=== PATIENT | female | born 1995 | race Caucasian/White ===

== ENCOUNTER 2016-10-24 11:32 | Emergency (ER) | payer OTHER ==
[~2016-10-24] VITALS: Ht 160 cm; Wt 100.0 kg
[2016-10-24 11:40] VITALS: Ht 160 cm; Wt 100.0 kg
[2016-10-24] MEDS ORDERED: AMO500 PO (11:56)
[2016-10-24] MEDS ORDERED: IBUP-1542 PO (11:56)
[2016-10-24] MEDS ORDERED: ALBU18HF INHALATION (11:56)
--- NOTE | 2016-10-24 12:08 | ERD ---
ER Documentation Chief Complaint Date/Time DATE: 10/24/16 TIME: 12:05 Chief Complaint sore throat with l ear pain for past 2 days HPI 21-year-old female patient with a past medical history of asthma presents to the ED complaining of sore throat that started 2 days ago. States that she also noticed a white dot on her left tonsil. States that she felt like she had slight wheezing but took her inhaler and feels better. Denies any dysphagia or odynophagia. Reports slight tactile fevers at home. Denies any chills, abdominal pain, nausea, vomiting, diarrhea, rashes. Denies being . ROS All systems reviewed and are negative except as per history of present illness. Medications Home Meds Active Scripts Albuterol Sulfate* (Ventolin HFA*) 18 Gm Hfa.aer.ad, 2 PUFF INHALATION Q4H, #1 INHALER Prov:ROMY WILLAMS-C 10/24/16 Amoxicillin* (Amoxicillin*) 500 Mg Cap, 500 MG PO BID for 10 Days, CAP Prov:ROMY WILLAMS-C 10/24/16 Ibuprofen* (Motrin*) 600 Mg Tab, 600 MG PO Q6, #30 TAB Prov:ROMY WILLAMS-C 10/24/16 Allergies Allergies: Coded Allergies: No Known Drug Allergy (Verified Allergy, Mild, 01/04/14) PMhx/Soc History of Surgery: No Hx Neurological Disorder: No Hx Respiratory Disorders: Yes (asthma) Hx Cardiac Disorders: No Hx Miscellaneous Medical Probl: No Hx Alcohol Use: No Hx Substance Use: No Hx Tobacco Use: No Physical Exam Vitals Vital Signs Date Time Temp Pulse Resp B/P Pulse Ox O2 Delivery O2 Flow Rate FiO2 10/24/16 11:40 98.5 110 18 124/89 99 Physical Exam Const: [id number], well-nourished. In no acute distress. Head: Atraumatic, normocephalic Eyes: Normal Conjunctiva without injection. No purulent discharge. PERRL. EOMI ENT: Normal external ear. Ear canal without erythema. Tympanic membrane pearly carrion without effusion or bulging. Nasal canal clear with normal turbinates. Moist oropharynx with left tonsillar exudates. Non-erythematous pharynx. Uvula midline. No drooling. No trismus. Neck: Full range of motion. No meningismus. No cervical lymphadenopathy. Resp: Clear to auscultation bilaterally. No wheezing, rhonchi, rales, or crackles. No accessory muscle use. No retractions. Cardio: Regular rate and rhythm. No murmurs, rubs or gallops. Abd: Soft, non tender, non distended. Normal bowel sounds. No palpable masses. No rebound tenderness. No guarding. Skin: No petechiae or rashes Back: No midline tenderness. No CVA tenderness. Ext: No cyanosis, or edema. Neur: Awake and alert. Psych: Normal Mood and Affect Procedures/MDM 21-year-old female patient with no significant past medical history presents the ED complaining of sore throat that started 2 days ago and noticed a white dot on her left tonsil. Patient is afebrile and nontoxic-appearing. Patient has normal vital signs. Patient's physical exam is consistent with presumed strep pharyngitis. Based on Centor's Criteria, patient has reported fever at home, left tonsillar exudates, no cough. Patient is appropriate for outpatient antibiotics. Patient's physical exam include lungs which were clear to auscultation and a normal pulse oximetry. Bilateral ears pearly cheek. No tenderness to palpation of tragus or mastoid. Low suspicion for mastoiditis, otitis externa, otitis media. Patient is speaking in full sentences. There is a low suspicion for pneumonia, epiglottitis, croup, Freddie's angina, sinusitis, peritonsillar abscess, hands foot mouth disease, scarlet fever, Kawasaki disease , retropharyngeal abscess, meningitis, sepsis, acute abdomen or other emergent conditions. Discharge medications: Ventolin, Amoxicillin, Ibuprofen Follow up with primary care physician in 1-2 days. Instructed patient to return to the ED sooner for any worsening symptoms. Patient's questions were answered. Patient understood and agreed with discharge plan. Patient discharged stable. Departure Diagnosis: Primary Impression: Sore throat Condition: Stable Patient Instructions: Strep Throat Referrals: COMM[facility]ITY CLIN[facility] YOU HAVE RECEIVED A MEDICAL SCREENING EXAM AND THE RESULTS INDICATE THAT YOU DO NOT HAVE A CONDITION THAT REQUIRES URGENT TREATMENT IN THE EMERGENCY DEPARTMENT. FURTHER EVALUATION AND TREATMENT OF YOUR CONDITION CAN WAIT UNTIL YOU ARE SEEN IN YOUR DOCTORS OFFICE WITHIN THE NEXT 1-2 DAYS. IT IS YOUR RESPONSIBILITY TO MAKE AN APPOINTMENT FOR FOLOW-UP CARE. IF YOU HAVE A PRIMARY DOCTOR --you should call your primary doctor and schedule an appointment IF YOU DO NOT HAVE A PRIMARY DOCTOR YOU CAN CALL OUR PHYSICIAN REFERRAL HOTLINE AT IF YOU CAN NOT AFFORD TO SEE A PHYSICIAN YOU CAN CHOSE FROM THE FOLLOWING [facility] [address] [facility] [address] [facility] [address] [facility] [address] [facility] [address] [facility]. [facility] [address] [facility]. [facility] YOU HAVE RECEIVED A MEDICAL SCREENING EXAM AND THE RESULTS INDICATE THAT YOU DO NOT HAVE A CONDITION THAT REQUIRES URGENT TREATMENT IN THE EMERGENCY DEPARTMENT. FURTHER EVALUATION AND TREATMENT OF YOUR CONDITION CAN WAIT UNTIL YOU ARE SEEN IN YOUR DOCTORS OFFICE WITHIN THE NEXT 1-2 DAYS. IT IS YOUR RESPONSIBILITY TO MAKE AN APPOINTMENT FOR FOLOW-UP CARE. IF YOU HAVE A PRIMARY DOCTOR --you should call your primary doctor and schedule and appointment IF YOU DO NOT HAVE A PRIMARY DOCTOR YOU CAN CALL OUR PHYSICIAN REFERRAL HOTLINE AT . IF YOU CAN NOT AFFORD TO SEE A PHYSICIAN YOU CAN CHOSE FROM THE FOLLOWING [facility]: [facility] [place] [address] [place] [address] [facility] [address] [place] [address] [facility] [address] [place] [address] [facility] Additional Instructions: Call your primary care doctor TOMORROW for an appointment during the next 2-3 days.See the doctor sooner or return here if your condition worsens before your appointment time. ROMY WILLAMS PA-C October 24, 2016 12:08
== END 2016-10-24 12:15 | disposition home or self-care (01) ==
LOC: FTE 11:32
DX: J02.9 Acute pharyngitis, unspecified (principal); J45.909 Unspecified asthma, uncomplicated
CPT/HCPCS: 99284

== ENCOUNTER 2016-12-12 15:35 | Emergency (ER) | payer OTHER ==
[~2016-12-12] VITALS: Ht 162.6 cm; Wt 98.0 kg
[~2016-12-12 15:35] MED LIST: ALBU18HF INHALATION; AMO500 PO; IBUP-1542 PO
[2016-12-12 15:37] VITALS: Ht 162.6 cm; Wt 98.0 kg
[2016-12-12] MEDS ORDERED: DIPHENHYDRAMINE 25 MG CAP PO ONE (16:00)
[2016-12-12] MEDS ORDERED: predniSONE 20 MG TAB PO ONE (16:00)
[2016-12-12] MEDS ORDERED: HC30CR25 TOP (16:03)
[2016-12-12] MEDS ORDERED: CETI10CA PO (16:03)
[2016-12-12] MEDS ORDERED: PRED20TA PO (16:03)
--- NOTE | 2016-12-12 16:08 | ERD ---
ER Documentation Chief Complaint Date/Time DATE: 12/12/16 TIME: 16:06 Chief Complaint GENERALIZED RASH X 2 DAYS HPI This 21-year-old female presents with a rash for last 2 days. It is itchy. Is primarily on her forearms and upper legs. She denies any known potential exposures although she did just recently start control pills last week. She denies any fevers, vomiting, shortness breath or chest pain. ROS All systems reviewed and are negative except as per history of present illness. Medications Home Meds Active Scripts Hydrocortisone* Topical (Hydrocortisone* Topical) 2.5%-28.3 Gm Cream..g., 1 APPLIC TOP BID for 7 Days, #1 TUB Prov:ELIZABETH AVERY MD 12/12/16 Prednisone* (Prednisone*) 20 Mg Tab, 40 MG PO DAILY for 4 Days, TAB Prov:ELIZABETH AVERY MD 12/12/16 Cetirizine Hcl* (Zyrtec*) 10 Mg Capsule, 10 MG PO DAILY, #15 TAB.CHEW Prov:ELIZABETH AVERY MD 12/12/16 Albuterol Sulfate* (Ventolin HFA*) 18 Gm Hfa.aer.ad, 2 PUFF INHALATION Q4H, #1 INHALER Prov:ROMY WILLAMS PA-C 10/24/16 Amoxicillin* (Amoxicillin*) 500 Mg Cap, 500 MG PO BID for 10 Days, CAP Prov:ROMY WILLAMS PA-C 10/24/16 Ibuprofen* (Motrin*) 600 Mg Tab, 600 MG PO Q6, #30 TAB Prov:ROMY WILLAMS PA-C 10/24/16 Allergies Allergies: Coded Allergies: No Known Drug Allergy (Verified Allergy, Mild, 12/12/16) PMhx/Soc History of Surgery: No Hx Neurological Disorder: No Hx Respiratory Disorders: Yes (asthma) Hx Cardiac Disorders: No Hx Miscellaneous Medical Probl: No Hx Alcohol Use: No Hx Substance Use: No Hx Tobacco Use: No Physical Exam Vitals Vital Signs Date Time Temp Pulse Resp B/P Pulse Ox O2 Delivery O2 Flow Rate FiO2 12/12/16 15:37 98.8 114 18 136/78 98 Physical Exam Const: [] Alert, [id number]. Head: Atraumatic Eyes: Normal Conjunctiva ENT: Normal External Ears, Nose and Mouth. Neck: Full range of motion..~ No meningismus. Resp: Clear to auscultation bilaterally Cardio: Regular rate and rhythm, no murmurs Abd: Soft, non tender, non distended. Normal bowel sounds Skin: No petechiae or purpura. There is blanching erythematous rash in the medial aspect of the bilateral forearms and slightly in the upper legs. There is no warmth, induration streaking, vesicles. Back: No midline or flank tenderness Ext: No cyanosis, or edema Neur: Awake and alert Psych: Normal Mood and Affect Results 24 hrs Current Medications Medications (Trade) Dose Ordered Sig/Karl Route PRN Reason Start Time Stop Time Status Last Admin Dose Admin Prednisone (Prednisone) 40 mg ONCE ONCE PO 12/12/16 16:00 12/12/16 16:01 DC Diphenhydramine HCl (Benadryl) 25 mg ONCE ONCE PO 12/12/16 16:00 12/12/16 16:01 DC Procedures/MDM Patient presents with a nonspecific dermatitis which is localized to the upper and lower extremities. Has a clinical appearance of some unspecified allergic reaction or contact dermatitis. She will treated with a short course prednisone , Zyrtec and hydrocortisone and observation at home. Patient was advised to consider evaluating medications as a cause for persistent rash despite treatment. There is no signs or symptoms of cellulitis, life-threatening rashes , anaphylaxis. Departure Diagnosis: Primary Impression: Rash Condition: Stable Patient Instructions: Dermatitis, Non-Specific Additional Instructions: Likely unspecified allergic reaction. Recommend consider stopping control if rash persists 1-2 weeks or despite treatment. ELIZABETH AVERY MD Dec 12, 2016 16:08
== END 2016-12-12 16:21 | disposition home or self-care (01) ==
LOC: FTE 15:35
DX: R21 Rash and other nonspecific skin eruption (principal); J45.909 Unspecified asthma, uncomplicated
CPT/HCPCS: J7512; Z7610; 99283

== ENCOUNTER 2017-05-01 17:53 | Emergency (ER) | payer OTHER ==
[~2017-05-01] VITALS: Ht 160 cm; Wt 97.0 kg
[~2017-05-01 17:53] MED LIST changes: -AMO500 PO; +AMOX500C2 PO; +CETI10CA PO; +HC30CR25 TOP; +PRED20TA PO
[2017-05-01 17:55] VITALS: Ht 160 cm; Wt 97.0 kg
[2017-05-01] MEDS ORDERED: SOD CHLORIDE 0.9% 1,000 ML IV STA (18:51)
[2017-05-01] MEDS ORDERED: KETOROLAC 30 MG INJ IV STA (18:51)
[2017-05-01] MEDS ORDERED: ACETAMINOPHEN 325 MG TAB PO ONE (19:00)
[2017-05-01] MEDS ORDERED: DEXAMETHASONE 10 MG/ML 1 ML INJ IV ONE (19:00)
[2017-05-01] MEDS ORDERED: AMPICILLIN/SULB 3 GM/NS (PMX) 100 ML IVPB ONE (19:00)
--- NOTE | 2017-05-01 19:43 | ERD ---
ER Documentation Chief Complaint Chief Complaint Throat pain x 3 days HPI The patient is a 21-year-old female, with a history of recurrent tonsillitis and asthma, who presents to the Emergency Department with complaint of throat pain and fever. The patient reports that her symptoms began 3 days ago, with onset of painful, swollen tonsils, with exudates. The patient notes a history of similar symptoms in the past, at which time she was treated for tonsillitis with antibiotics. This afternoon the patient developed fevers, prompting the visit to the Emergency Department. 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 She otherwise denies any rhinorrhea, nasal congestion, cough, neck pain, neck stiffness, new rashes, vomiting, diarrhea, abdominal pain, flank pain, dysuria or hematuria. She denies any difficulty opening or closing her mouth. Denies change in phonation. Denies any difficulty tolerating her oral secretions. She does admit to increased pain upon swallowing solids, though denies any difficulty tolerating POs. No other complaints at this time. ROS All systems reviewed and are negative except as per history of present illness. Medications Home Meds Active Scripts Benzocaine/Menthol* (Cepacol* Sore Throat Lozenges) 1 Each Lozenge, 1 EACH MM q2h Y for SORE THROAT, #30 LOZENGE Prov:MARIA ELENA ALARCON PA-C 05/01/17 Ibuprofen* (Motrin*) 600 Mg Tab, 600 MG PO Q6, #30 TAB Prov:MARIA ELENA ALARCON PA-C 05/01/17 Amoxicillin/Potassium Clav (Amox-Clav 875-125 mg Tablet) 875-125 mg Tab, 1 TAB PO BID for 7 Days, #14 TAB Prov:MARIA ELENA ALARCON PA-C 05/01/17 Hydrocortisone* Topical (Hydrocortisone* Topical) 2.5%-28.3 Gm Cream..g., 1 APPLIC TOP BID for 7 Days, #1 TUB Prov:ELIZABETH AVERY MD 12/12/16 Prednisone* (Prednisone*) 20 Mg Tab, 40 MG PO DAILY for 4 Days, TAB Prov:ELIZABETH AVERY MD 12/12/16 Cetirizine Hcl* (Zyrtec*) 10 Mg Capsule, 10 MG PO DAILY, #15 TAB.CHEW Prov:ELIZABETH AVERY MD 12/12/16 Albuterol Sulfate* (Ventolin HFA*) 18 Gm Hfa.aer.ad, 2 PUFF INHALATION Q4H, #1 INHALER Prov:ROMY WILLAMS PALOMA 10/24/16 Amoxicillin* (Amoxicillin*) 500 Mg Cap, 500 MG PO BID for 10 Days, CAP Prov:ROMY WILLAMS PALOMA 10/24/16 Ibuprofen* (Motrin*) 600 Mg Tab, 600 MG PO Q6, #30 TAB Prov:ROMY WILLAMS CONSTANZAElizabethPreet 10/24/16 Allergies Allergies: Coded Allergies: No Known Drug Allergy (Verified Allergy, Mild, 12/12/16) PMhx/Soc History of Surgery: No Anesthesia Reaction: No Hx Neurological Disorder: No Hx Respiratory Disorders: Yes (asthma) Hx Cardiac Disorders: No Hx Psychiatric Problems: No Hx Miscellaneous Medical Probl: Yes (CHRONIC TONSILITIS ) Hx Alcohol Use: No Hx Substance Use: No Hx Tobacco Use: No Smoking Status: Never smoker Physical Exam Vitals Vital Signs Date Time Temp Pulse Resp B/P Pulse Ox O2 Delivery O2 Flow Rate FiO2 05/01/17 20:08 98.5 94 18 120/82 98 Room Air 05/01/17 17:55 100.2 127 22 135/77 98 Physical Exam GENERAL: Well-developed, well-nourished, in no acute distress. HEENT: Head is normocephalic, atraumatic. No scleral pallor or icterus. Pupils equal, round and reactive to light. Extraocular movements intact. Conjunctiva pink. Bilaterally tympanic membranes are clear with no evidence of erythema, effusion or dulling of the light reflex. Moist mucous membranes. Posterior pharynx is erythematous with exudates noted bilaterally. Uvula is midline. No trismus, stridor or excessive drooling. No pooling of oral secretions. No submandibular swelling. No brawny induration. Phonation is normal. NECK: Supple. Tender anterior cervical lymphadenopathy. Trachea midline. No nuchal rigidity. Full range of motion. RESPIRATORY: Lungs are clear to auscultation bilaterally. No rales, rhonchi or wheezing. Equal breath sounds. Normal expiratory effort. CARDIOVASCULAR: Tachycardic. Regular rhythm. S1 and S2 normal. No murmurs, rubs , or gallops. GASTROINTESTINAL: Abdomen is soft, nontender, and nondistended. No guarding, no rebound tenderness. Normal bowel sounds. EXTREMITIES: No clubbing, cyanosis, or edema. Normal skin perfusion. Moving all extremities. No focal swelling or erythema. NEUROLOGIC: The patient is alert, awake, and oriented. Nonfocal exam. INTEGUMENT: Skin is clean, dry and intact. No rashes, lesions or petechiae present. Normal turgor. PSYCHIATRIC: Appropriate; Cooperative. Results 24 hrs Current Medications Medications (Trade) Dose Ordered Sig/Karl Route PRN Reason Start Time Stop Time Status Last Admin Dose Admin Sodium Chloride (NS) 1,000 ml @ 1,000 mls/hr Q1H STAT IV 05/01/17 18:51 05/01/17 19:50 DC 05/01/17 19:07 Ketorolac Tromethamine (Toradol) 30 mg ONCE STAT IV 05/01/17 18:51 05/01/17 18:53 DC 05/01/17 19:06 Dexamethasone 10 mg 10 mg ONCE ONCE IV 05/01/17 19:00 05/01/17 19:01 DC 05/01/17 19:06 Ampicillin Sodium/ Sulbactam Sodium (Unasyn 3gm/NS (Pmx)) 100 ml @ 100 mls/hr ONCE ONCE IVPB 05/01/17 19:00 05/01/17 19:59 DC 05/01/17 19:21 Acetaminophen (Tylenol Tab) 650 mg ONCE ONCE PO 05/01/17 19:00 05/01/17 19:01 DC 05/01/17 19:06 Procedures/MDM This is a 21-year-old female with history of asthma and recurrent tonsillitis presenting to the Emergency Department complaining of sore throat and fever. She is non-toxic appearing and exhibits no meningeal signs. On physical examination the patient's posterior pharynx is erythematous, with exudates noted bilaterally. She had tender anterior cervical lymphadenopathy. The differential diagnosis includes, but is not limited to, pharyngitis, laryngitis , epiglottitis, peritonsillar abscess, Freddie's angina, mononucleosis, allergic reaction, candidiasis, stomatitis, foreign body, dental pain, pneumonia. The patient's condition remained stable during her stay. After rest and administration of fluids, Toradol, Decadron and Unasyn, the patient reports no new complaints and decreased pain. Given that the patient presented with fever, tonsillar exudates, tender anterior cervical lymphadenopathy and no cough, she fulfilled all four conditions of the Centor Criteria, and I believe that the patient's symptoms are most consistent with exudative pharyngitis, likely streptococcal. Uvula is midline. There was no uvular deviation, submandibular swelling, brawny induration, elevation of the tongue, change in phonation, tripoding. I do not suspect peritonsillar abscess, retropharyngeal abscess, Freddie's angina, epiglottitis or any other emergent medical condition. At this time, the patient is in stable condition, and therefore can be discharged home with prescriptions for ibuprofen, cepacol lozenges and Augmentin (given recurrent nature of symptoms), and given strict return precautions for signs of deteriorating or worsening condition. She is advised to follow-up with her primary care provider for reevaluation and further management within the next 2-3 days, or return to the ER sooner for any new or worsening symptoms. Additionally, advised follow up with ENT specialist to discuss possible need for tonsillectomy. I shared my medical decision making and plan with the patient at length and in great detail , and she verbally understands and agrees with the plan for further observation and care as an outpatient. At the time of discharge, all questions were answered. Departure Diagnosis: Primary Impression: Exudative pharyngitis Condition: Stable Patient Instructions: Pharyngitis, Strep (Presumed), Self-Care for Sore Throats , Strep Throat, When You Have a Sore Throat Referrals: DAMARIS AYERS MD, STEPHEN H MD Additional Instructions: Call your primary care doctor TOMORROW for an appointment during the next 2-3 days.See the doctor sooner or return here if your condition worsens before your appointment time. MARIA ELENA ALARCON PA-C May 01, 2017 19:43
[2017-05-01] MEDS ORDERED: AMOX1TAB10 PO (19:44)
[2017-05-01] MEDS ORDERED: IBUP-1542 PO (19:44)
[2017-05-01] MEDS ORDERED: BENZ1LOZ52 MM (19:44)
[2017-05-01 20:08] VITALS: BP 120/82; PULSE 94; RESP 18; TEMP 98.5
== END 2017-05-01 20:08 | disposition home or self-care (01) ==
LOC: FTE 17:53
DX: J02.9 Acute pharyngitis, unspecified (principal); J45.909 Unspecified asthma, uncomplicated
CPT/HCPCS: 96374; 96375; J0295; J1100; J1885; J7030; Z7502; Z7610

== ENCOUNTER 2018-04-18 23:31 | Emergency (ER) | END 2018-04-19 02:58 | disposition home or self-care (01) ==

== ENCOUNTER 2018-09-26 02:06 | Emergency (ER) | payer OTHER ==
[~2018-09-26] VITALS: Ht 162.6 cm; Wt 98.7 kg
[~2018-09-26 02:06] MED LIST changes: +AMOX1TAB10 PO; +BENZ1LOZ52 MM; +CLIN300C10 PO; +NAPR-985 PO; +PULM180 INH
[2018-09-26 02:37] VITALS: Ht 162.6 cm; Wt 98.7 kg
[2018-09-26] MEDS ORDERED: ALBUTEROL 0.083% (NEB) 2.5 MG/3 ML AMP NEB STA ×2 (03:33→04:11)
[2018-09-26] MEDS ORDERED: IPRATROPIUM (NEB) 0.5 MG/2.5 ML AMP NEB STA (03:33)
[2018-09-26] MEDS ORDERED: predniSONE 20 MG TAB PO STA (03:33)
--- NOTE | 2018-09-26 04:46 | ERD ---
ER Documentation Chief Complaint Chief Complaint SOB,CWP & back pain,hx asthma,9 wks HPI 23-year-old female in her ninth weeks of presents with wheezing for the past 3 days. States that she was taking albuterol but has not resolve the wheezing. Denies any fevers, cough, chest pain, respiratory distress, stridor. History of asthma. ROS All systems reviewed and are negative except as per history of present illness. Medications Home Meds Active Scripts Prednisone* (Prednisone*) 20 Mg Tab, 40 MG PO DAILY for asthma for 4 Days, TAB Prov:ROSA MARIAABEL 09/26/18 Albuterol Sulfate* (Ventolin HFA*) 18 Gm Hfa.aer.ad, 2 PUFF INHALATION Q4H, #1 INHALER Prov:AMINICKTATUMABEL 09/26/18 Naproxen* (Naprosyn*) 500 Mg Tablet, 500 MG PO BID PRN for PAIN AND/OR INFLAMMATION, #30 TAB Prov:BOOGIE DE JESUS PA-C 07/22/18 Clindamycin Hcl* (Clindamycin Hcl*) 300 Mg Capsule, 300 MG PO TID for 10 Days, CAP Prov:BOOGIE DE JESUS PA-C 07/22/18 Budesonide (Pulmicort Flexhaler) 180 Mcg Aer.pow.ba, 180 MCG INH BID, #1 EA Prov:HIRA,KAROLINA 04/19/18 Albuterol Sulfate* (Ventolin HFA*) 18 Gm Hfa.aer.ad, 2 PUFF INHALATION Q4H, #1 INHALER Prov:HIRA,KAROLINA 04/19/18 Prednisone* (Prednisone*) 20 Mg Tab, 40 MG PO DAILY for 4 Days, TAB Prov:HIRA,KAROLINA 04/19/18 Benzocaine/Menthol* (Cepacol* Sore Throat Lozenges) 1 Each Lozenge, 1 EACH MM q2h PRN for SORE THROAT, #30 LOZENGE Prov:MARIA ELENA ALARCON PA-C 05/01/17 Ibuprofen* (Motrin*) 600 Mg Tab, 600 MG PO Q6, #30 TAB Prov:MARIA ELENA ALARCON PA-C 05/01/17 Amoxicillin/Potassium Clav (Amox-Clav 875-125 mg Tablet) 875-125 mg Tab, 1 TAB PO BID for 7 Days, #14 TAB Prov:MARIA ELENA ALARCON PA-C 05/01/17 Hydrocortisone* Topical (Hydrocortisone* Topical) 2.5%-28.3 Gm Cream..g., 1 APPLIC TOP BID for 7 Days, #1 TUB Prov:ELIZABETH AVERY MD 12/12/16 Prednisone* (Prednisone*) 20 Mg Tab, 40 MG PO DAILY for 4 Days, TAB Prov:ELIZABETH AVERY MD 12/12/16 Cetirizine Hcl* (Zyrtec*) 10 Mg Capsule, 10 MG PO DAILY, #15 TAB.CHEW Prov:ELIZABETH AVERY MD 12/12/16 Albuterol Sulfate* (Ventolin HFA*) 18 Gm Hfa.aer.ad, 2 PUFF INHALATION Q4H, #1 INHALER Prov:ROMY WILLAMS PA-C 10/24/16 Amoxicillin* (Amoxicillin*) 500 Mg Cap, 500 MG PO BID for 10 Days, CAP Prov:ROMY WILLAMS PA-C 10/24/16 Ibuprofen* (Motrin*) 600 Mg Tab, 600 MG PO Q6, #30 TAB Prov:ROMY WILLAMS PA-C 10/24/16 Allergies Allergies: Coded Allergies: No Known Drug Allergy (Verified Allergy, Mild, 12/12/16) PMhx/Soc History of Surgery: No Anesthesia Reaction: No Hx Neurological Disorder: No Hx Respiratory Disorders: Yes (asthma) Hx Cardiac Disorders: No Hx Psychiatric Problems: No Hx Miscellaneous Medical Probl: Yes (CHRONIC TONSILITIS ) Hx Alcohol Use: No Hx Substance Use: No Hx Tobacco Use: No Smoking Status: Never smoker FmHx Family History: No diabetes, No coronary disease, No other Physical Exam Vitals Vital Signs Date Temp Pulse Resp B/P (MAP) Pulse Ox O2 O2 Flow FiO2 Time Delivery Rate 09/26/18 98 20 21 04:17 09/26/18 98.2 95 22 145/94 99 02:37 (111) Physical Exam Const: No acute distress Head: Atraumatic Eyes: Normal Conjunctiva ENT: Normal External Ears, Nose and Mouth. Neck: Full range of motion. No meningismus. Resp: Wheezing heard in the lung gregory diffusely. No rales or rhonchi. Cardio: Regular rate and rhythm, no murmurs Abd: Soft, non tender, non distended. Normal bowel sounds Skin: No petechiae or rashes Back: No midline or flank tenderness Ext: No cyanosis, or edema Neur: Awake and alert Psych: Normal Mood and Affect Results 24 hrs Current Medications Medications Dose Sig/Karl Start Time Status Last (Trade) Ordered Route PRN Stop Time Admin Dose Reason Admin Albuterol 7.5 mg ONCE STAT 09/26/18 DC (Proventil NEB 03:33 0.083% (Neb)) 09/26/18 04:13 Ipratropium 0.5 mg ONCE STAT 09/26/18 DC 09/26/18 [place] NEB 03:33 04:16 (Atrovent 09/26/18 03:36 0.02% (Neb)) Prednisone 60 mg ONCE STAT 09/26/18 DC 09/26/18 (Prednisone) PO 03:33 03:45 09/26/18 03:36 Albuterol 5 mg ONCE STAT 09/26/18 DC 09/26/18 (Proventil NEB 04:11 04:17 0.083% (Neb)) 09/26/18 04:13 Procedures/MDM EKG: Rate/Rhythm: Normal Sinus Rhythm QRS, ST, T-waves: No changes consistent w/ acute ischemia Impression: No evidence of ischemia or arrhythmia ER Course: Patient given treatment with nebulized albuterol, ipatropium, and steroids. MDM: I have low suspicion for status asthmaticus due to patient improvement after breathing treatment. I have low suspicion for CHF, pneumonia, aspirated foreign body, pneumothorax, PE, respiratory distress, or other emergent conditio n based on exam and patient history. In addition, patient does not meet Wells score criteria for D-Dimer. Presentation consistent with asthma exacerbation for which patient was given breathing treatment and steroids in ER. After breathing treatment was finished, patients vitals and exam were WNL and patient stated they felt much better. Patient was discharged with rx for alubuterol and a short course of oral steroids. Patient was also advised that asthma has to be managed on outpatient basis by primary care provider. Patient discharged with strict ER precautions. Patient advised to follow up with PMD. All questions answered at discharge. Departure Diagnosis: Primary Impression: Asthma Asthma severity: unspecified severity Asthma persistence: unspecified Asthma complication type: with acute exacerbation Qualified Codes: J45.901 - Unspecified asthma with (acute) exacerbation Condition: ABEL Chisholm Sep 26, 2018 04:46
[2018-09-26] MEDS ORDERED: PRED20TA PO (04:47)
[2018-09-26] MEDS ORDERED: ALBU18HF INHALATION (04:47)
[2018-09-26 05:02] VITALS: BP 123/87; PULSE 87; RESP 20
== END 2018-09-26 05:04 | disposition home or self-care (01) ==
LOC: FTE 02:06
DX: J45.901 Unspecified asthma with (acute) exacerbation (principal)
CPT/HCPCS: 93005; 94664; J7512; Z7502; Z7610

== ENCOUNTER 2018-11-18 16:45 | Emergency (ER) | payer OTHER ==
[~2018-11-18] VITALS: Ht 160 cm; Wt 100.3 kg
[2018-11-18 16:57] VITALS: Ht 160 cm; Wt 100.3 kg
[2018-11-18] MEDS ORDERED: CEPH-443 PO (19:56)
--- NOTE | 2018-11-18 20:18 | ERD ---
ER Documentation Chief Complaint Chief Complaint VAG BLEED , ONSET TODAY , 18 WEEKS PREG HPI 23-year-old female with no past medical history, G1, P0 18 weeks who presents with complaint of single episode of vaginal bleeding. Patient states she went to the bathroom and when she wiped she noticed blood streaking on tissue. She denies further episodes of bleeding, vaginal discharge, abdominal or pelvic pain, urinary symptoms. States she was recently treated for UTI completing antibiotics about 4 days ago. States she did not have symptoms of UTI at that time. She otherwise is without complaint. Saw her [employer] in early October and had a normal ultrasound. ROS All systems reviewed and are negative except as per history of present illness. Medications Home Meds Active Scripts Cephalexin* (Keflex*) 500 Mg Capsule, 500 MG PO BID for 7 Days, CAP Prov:MAGALI PRICE PA-C 11/18/18 Prednisone* (Prednisone*) 20 Mg Tab, 40 MG PO DAILY for asthma for 4 Days, TAB Prov:ABEL CRANE 09/26/18 Albuterol Sulfate* (Ventolin HFA*) 18 Gm Hfa.aer.ad, 2 PUFF INHALATION Q4H, #1 INHALER Prov:BAEL CRANE 09/26/18 Naproxen* (Naprosyn*) 500 Mg Tablet, 500 MG PO BID PRN for PAIN AND/OR INFLAMMATION, #30 TAB Prov:BOOGIE DE JESUS PA-C 07/22/18 Clindamycin Hcl* (Clindamycin Hcl*) 300 Mg Capsule, 300 MG PO TID for 10 Days, CAP Prov:BOOGIE DE JESUS PA-C 07/22/18 Budesonide (Pulmicort Flexhaler) 180 Mcg Aer.pow.ba, 180 MCG INH BID, #1 EA Prov:HIRA,KAROLINA 04/19/18 Albuterol Sulfate* (Ventolin HFA*) 18 Gm Hfa.aer.ad, 2 PUFF INHALATION Q4H, #1 INHALER Prov:HIRA,KAROLINA 04/19/18 Prednisone* (Prednisone*) 20 Mg Tab, 40 MG PO DAILY for 4 Days, TAB Prov:HIRA,KAROLINA 04/19/18 Benzocaine/Menthol* (Cepacol* Sore Throat Lozenges) 1 Each Lozenge, 1 EACH MM q2h PRN for SORE THROAT, #30 LOZENGE Prov:MARIA ELENA ALARCON PA-C 05/01/17 Ibuprofen* (Motrin*) 600 Mg Tab, 600 MG PO Q6, #30 TAB Prov:MARIA ELENA ALARCON PA-C 05/01/17 Amoxicillin/Potassium Clav (Amox-Clav 875-125 mg Tablet) 875-125 mg Tab, 1 TAB PO BID for 7 Days, #14 TAB Prov:MARIA ELENA ALARCON PA-C 05/01/17 Hydrocortisone* Topical (Hydrocortisone* Topical) 2.5%-28.3 Gm Cream..g., 1 APPLIC TOP BID for 7 Days, #1 TUB Prov:ELIZABETH AVERY MD 12/12/16 Prednisone* (Prednisone*) 20 Mg Tab, 40 MG PO DAILY for 4 Days, TAB Prov:ELIZABETH AVERY MD 12/12/16 Cetirizine Hcl* (Zyrtec*) 10 Mg Capsule, 10 MG PO DAILY, #15 TAB.CHEW Prov:ELIZABETH AVERY MD 12/12/16 Albuterol Sulfate* (Ventolin HFA*) 18 Gm Hfa.aer.ad, 2 PUFF INHALATION Q4H, #1 INHALER Prov:ROMY WILLAMS PA-C 10/24/16 Amoxicillin* (Amoxicillin*) 500 Mg Cap, 500 MG PO BID for 10 Days, CAP Prov:ROMY WILLAMS PA-C 10/24/16 Ibuprofen* (Motrin*) 600 Mg Tab, 600 MG PO Q6, #30 TAB Prov:ROMY WILLAMS PA-C 10/24/16 Allergies Allergies: Coded Allergies: No Known Drug Allergy (Verified Allergy, Mild, 12/12/16) PMhx/Soc Medical and Surgical Hx: pt denies Surgical Hx History of Surgery: No Anesthesia Reaction: No Hx Neurological Disorder: No Hx Respiratory Disorders: Yes (asthma) Hx Cardiac Disorders: No Hx Psychiatric Problems: No Hx Miscellaneous Medical Probl: Yes (CHRONIC TONSILITIS ) Hx Alcohol Use: No Hx Substance Use: No Hx Tobacco Use: No Smoking Status: Never smoker FmHx Family History: No diabetes, No coronary disease, No other Physical Exam Vitals Vital Signs Date Temp Pulse Resp B/P (MAP) Pulse Ox O2 O2 Flow FiO2 Time Delivery Rate 11/18/18 98.1 98 18 133/76 99 16:57 (95) Physical Exam I have reviewed the triage vital signs. Const: Well nourished, well developed, appears stated age Eyes: PERRL, no conjunctival injection HENT: NCAT, Neck supple without meningismus CV: RRR, Warm, well-perfused extremities RESP: CTAB, Unlabored respiratory effort GI: soft, non-tender, non-distended, no masses MSK: No gross deformities appreciated Skin: Warm, dry. No rashes Neuro: grossly non focal Psych: Appropriate mood and affect. Results 24 hrs Laboratory Tests Test 11/18/18 18:31 Urine Color YELLOW Urine Clarity TURBID Urine pH 8.0 Urine Specific [place] 1.014 Urine Ketones NEGATIVE mg/dL Urine Nitrite NEGATIVE mg/dL Urine Bilirubin NEGATIVE mg/dL Urine Urobilinogen NEGATIVE mg/dL Urine Leukocyte Esterase 3+ Nancy/ul Urine Microscopic RBC > 182 /HPF Urine Microscopic WBC 47 /HPF Urine Squamous Epithelial Cells MODERATE /HPF Urine Amorphous Crystals MANY /HPF Urine Bacteria FEW /HPF Urine Hemoglobin 3+ mg/dL Urine Glucose NEGATIVE mg/dL Urine Total Protein NEGATIVE mg/dl Procedures/MDM This patient in the first trimester of presented to the emergency department with complaints of vaginal bleeding. VSS. US with viable intrauterine dated at 18 weeks. Os is closed. I have low suspicion for intra-abdominal or pelvic process requiring further emergent work-up or care. Given single episode of bleeding at 18 weeks gestation will defer labs at this time. ED course: Ultrasound with viable intrauterine UA significant for UTI, patient recently treated with antibiotic completing course 4 days ago, will discharge with Keflex antibiotic, patient advised to call [employer] on Tuesday for starting antibiotics, possibly to get culture results which should be states were sent from office DISPOSITION PLAN: We discussed follow up with the patient's primary care doctor within 24 to 48 hours. Patient counseled regarding my diagnostic impression and care plan. Prior to discharge all questions answered. Pt agrees with treatment plan and understands strict return precautions. Precautionary instructions provided including instructions to return to the ER if not improving or for any worsening or changing symptoms or concerns. Disclaimer: Inadvertent spelling and grammatical errors are likely due to EHR/dictation software use and do not reflect on the overall quality of patient care. Also, please note that the electronic time recorded on this note does not necessarily reflect the actual time of the patient encounter. Departure Condition: Stable Patient Instructions: Urinary Tract Infections in Women, Vaginal Bleed in Referrals: JABIER LIN (PCP) Additional Instructions: Call your primary care doctor TOMORROW for an appointment during the next 2-3 days.See the doctor sooner or return here if your condition worsens before your appointment time. MAGALI PRICE PA-C Nov 18, 2018 20:18
[2018-11-18 20:30] VITALS: BP 121/73; PULSE 98; RESP 18
== END 2018-11-18 20:30 | disposition home or self-care (01) ==
LOC: FTE 16:45
DX: O20.9 Hemorrhage in early pregnancy, unspecified (principal); O99.512 Diseases of the respiratory system complicating pregnancy, second trimester; J45.909 Unspecified asthma, uncomplicated; Z3A.18 18 weeks gestation of pregnancy
CPT/HCPCS: 76805; 81001; 87086; Z7502

== ENCOUNTER 2018-12-25 18:11 | Outpatient (CLI) | payer OTHER ==
[~2018-12-25] VITALS: Ht 160 cm; Wt 103.0 kg
[~2018-12-25 18:11] MED LIST changes: +CEPH-443 PO
[2018-12-25 18:36] VITALS: Ht 160 cm; Wt 103.0 kg
[2018-12-25] MEDS ORDERED: PREN-93 PO (18:37)
--- NOTE | 2018-12-25 22:14 | PN ---
Triage Information Date/Time December 25, 2018 Reason for visit: Vag spotting / bleeding Weeks of Gestation 23w 2d /Para 1/0 Diabetes: none Hypertention: none Additional information Pt had intercourse tonight and afterwards had spotting and lower abdominal pressure and cramping. +FM. PMHX: none. PSHx: none. NKDA. Objective BP 131/87 T= 98.8 Heart Rate: 140's Heart Rate Comments Accels to 160 BPM. No decels. Contractions: None Results/Medications Results 24 hrs Laboratory Tests Test 12/25/18 18:25 Urine Color YELLOW Urine Clarity SLIGHTLY CLOUDY A Urine pH 7.0 Urine Specific [place] 1.012 Urine Ketones NEGATIVE Urine Nitrite NEGATIVE Urine Bilirubin NEGATIVE Urine Urobilinogen NEGATIVE Urine Leukocyte Esterase 3+ H Urine Microscopic RBC > 182 H Urine Microscopic WBC 8 H Urine Squamous Epithelial Cells FEW Urine Bacteria FEW A Urine Hemoglobin 3+ H Urine Glucose NEGATIVE Urine Total Protein NEGATIVE Imaging Results Fundal placenta w/o previa. Cx is closed and 4.2 cm long. BREECH. Normal fluid. Disposition: Discharge Assessment/Plan A: IUP at 23w 2d. Post-coital bleeding. P: Will d/c the pt home. She drank a few glasses of water while here and is to take a shower at home before going to bed. Pelvic rest x 2 weeks. With coitus instructed her partner to try to not make contact with the cervix, i.e. to be gentle. Urine cx. ROJELIO GAUTAM MD Dec 25, 2018 22:14
--- NOTE | 2018-12-26 01:18 | TRIAGE ---
OB Triage Datetime Report Generated by CPN: 12/26/2018 01:18 Datetime: 12/25/2018 22:14 Stage of : OB Triage Datetime: 12/25/2018 21:24 Heart Rate FHR Baseline Rate: 155 Monitor Mode: External US Comments: Baby audibly active but difficult to monitor Datetime: 12/25/2018 20:56 Stage of : OB Triage Datetime: 12/25/2018 20:14 Maternal Assessment Level of Consciousness: Keenly Alert, Responsive DTR's/Clonus: DTRs 1+ Headache: Denies Blurred Vision: No Respiratory Effort: Unlabored Breath Sounds, Left: Clear and Equal Breath Sounds, Right: Clear and Equal Nausea/Vomiting: Denies RUQ Epigastric Pain: Denies Facial Edema: None Labor Evaluation Frequency: NONE Monitor Mode: External Resting Tone [place]: Relaxed Heart Rate FHR Baseline Rate: 145 Monitor Mode: External US Variability: Moderate 6-25 bpm Accelerations: 10X10 Decelerations: None Category: Category I Pain Assessment Pain Scale: 5 Pain Presence: Intermittent Pain Type: Cramping Pain Location: Abdomen Pain Goal: 3 Vaginal Exam Membrane Status: Intact Datetime: 12/25/2018 18:00 Time of Arrival: 12/25/2018 18:00 EGA: 23.2 Arrived By: Ambulatory Arrived From: Home Chief Complaint: PT CAME IN C/O CRAMPING AND SPOTTING AFTER HAVING SEX Movement: Present Contractions: Denies/Absent Rupture of Membranes: Denies Vaginal Discharge: Denies Recent Sexual Intercouse: Yes Abdominal Trauma: Not Applicable Patient Complaints: Cramping Additional Patient Complaints: NONE Time Provider Notified: 12/25/2018 20:00 Provider Notified: DAIN Initial Plan: MONITOR, UA, CX LENGHT, TRISH
== END 2018-12-25 22:10 | disposition home or self-care (01) ==
LOC: OBT 18:11 → L-D 18:14 → OBT 22:10
PROVIDERS: ATTEND Obstetrics & Gynecology
DX: O26.892 Other specified pregnancy related conditions, second trimester (principal); N93.0 Postcoital and contact bleeding; Z3A.23 23 weeks gestation of pregnancy
CPT/HCPCS: 76815; 76817; 81001; 87086; Z7500; G0463